=== PATIENT | female | born 1970 | race Two or more races ===

== ENCOUNTER 2019-11-10 18:23 | Emergency (ER) | payer OTHER ==
[~2019-11-10] VITALS: Ht 165.1 cm; Wt 89.8 kg
[~2019-11-10 18:23] MED LIST: CODE1TAB37 PO; KETO10TA2 PO; MIRALAX12 EA PO; MOTRIN800 MG PO; Mylicon 125MG PO; ORPH100T PO
[2019-11-10] MEDS ORDERED: BACTRIM DS TAB1 EACH PO (20:56)
[2019-11-10] MEDS ORDERED: DICLOFENAC SODI75 MG PO (20:56)
== END 2019-11-10 21:05 | disposition home or self-care (01) ==
LOC: ER 18:23
DX: N39.0 Urinary tract infection, site not specified (principal)